=== PATIENT | male | born 1995 | race Two or more races ===

== ENCOUNTER 2021-10-29 19:19 | Emergency (ER) | payer OTHER, SELFPAY ==
--- NOTE | ~2021-10-29 | XR_ITS ---
EXAMINATION: XR HAND, RIGHT CLINICAL INFORMATION: Laceration and pain. Evaluate for a foreign body. COMPARISON: None TECHNIQUE: PA, lateral, and oblique views of the right hand. FINDINGS: Lucency within the soft tissues adjacent to the base of the fifth metacarpal consistent with a soft tissue laceration. No radiopaque foreign body. No fracture or dislocation. No osseous erosion. No abnormal soft tissue calcification. XR/XR hand RT min 3V IMPRESSION: Laceration adjacent to the base of the fifth metacarpal without acute osseous abnormality or radiopaque foreign body.
[2021-10-29 19:38] VITALS: PULSE 83; RESP 18; TEMP 36.9; O2SAT 99; BMI 23.8
--- NOTE | 2021-10-29 20:27 | ED_ITS ---
HPI - Wound/Laceration General Chief Complaint: Wound/Laceration Stated Complaint: right hand laceration Time Seen by Provider: 10/29/21 20:26 Source: patient Mode of arrival: ambulatory Limitations: no limitations History of Present Illness HPI narrative: 25-year-old male presenting to the emergency department laceration to his pain and happened just prior to arrival. Patient tells me was in aggression moving t hings, he slipped and he thinks that he cut his hand on glass. Denies numbness or tingling. Able to make a fist moving all digits, no wrist pain. When he fell he denied his head. No loss of consciousness. He denies and tingling. Patient is not on blood thinners. He is not a diabetic. He is not up-to-date on tetanus shot. Onset (ago): hour(s) (2) Location: other (right hand ) Place: home Patient tetanus UTD: No Context: accidental Associated symptoms: none Related Data Home Medications Medication Instructions Recorded Confirmed ibuprofen 400 mg tablet 400 mg PO Q6H PRN 10/29/21 10/29/21 Allergies Allergy/AdvReac Type Severity Reaction Status Date / Time Fish Containing Products Allergy Anaphylaxis Verified 10/29/21 19:32 Review of Systems Review of Systems: Constitutional : No Fever, No Chills, Cardiovascular : No Chest Pain, No SOB Respiratory : No Dyspnea Gastrointestinal : No abdominal pain Musculoskeletal : No Joint Swelling Skin : No rash, positive skin laceration Neuro : No Weakness, No Numbness Psych : No SI/HI Yes all other systems are reviewed and are negative [facility] Past Medical History Attestation statement: The following information was validated with the patient. Source: old records reviewed and nursing notes reviewed Social History Social History Advance Directives: No Physical Exam Vital Signs: Vital Signs: Last Vital Signs Temp 98.5 F 10/29/21 19:38 Pulse 83 10/29/21 19:38 Resp 18 10/29/21 19:38 Pulse Ox 99 10/29/21 19:38 BMI result Body Mass Index 23.8 VSS Appearance: Alert.? Oriented X3.? No acute distress.? Head: Normocephalic, atraumatic, no step-offs or deformities Eyes: Pupils equal, round and reactive to light.? ENT: Pharynx normal.? Neck: Normal inspection.? Neck supple.? CVS: Normal heart rate and rhythm.? Pulses normal.? Respiratory: No respiratory distress.? Breath sounds normal.? Abdomen: Soft and nontender.? Skin: Skin warm and dry.? Normal skin color.? Normal skin turgor.? + laceration to dorsal aspect of right hand around 4 cm linear no evidence of foreign bodies. Extremities: No lower extremity edema.? No calf ttp. 5/5 strength to bilateral upper and lower extremities Neuro: Oriented X 3.? No motor deficit.? No sensory deficit. CN 2-12 intact Course Reevaluation(s) Reevaluation #1: 4, 5-0 sutures placed to laceration, tolerated procedure well. X-ray of the right hand with a laceration adjacent to the base of the 5th metacarpal without acute osseous abnormality or foreign body. At this time patient will be discharged home. Patient is not a diabetic, no need for antibiotics at this time. There is thorough irrigation done on the wound it was cleaned well. Advised patient to return with new or worsening symptoms. Also advised him to return for suture removal in 7-10 days comfortable with discharge home. Upon discharge patient's right hand neurovascularly intact, sensory and motor in tact able to make a fist bilaterally range of motion to all fingers, wrist. Time: 21:08 MDM - Wound/Laceration [facility] Narrative Medical decision making narrative: 2028 25-year-old male presents with a laceration to the right dorsal aspect of hand occurred just prior to his arrival, cut his hand on glass he thinks after he tripped and fell. Not up-to-date on a tetanus shot. Physical examination with a 3 cm linear laceration on the and dorsal aspect of hand, no evidence of foreign bodies. Sensory and motor intact to bilateral upper and lower extremities. Capillary refill less than 2 seconds to bilateral digits. Neurovascularly intact. Plan at this time is tetanus shot, suturing. I will also obtain an x-ray of the right hand to rule out foreign bodies. Medical Records Attestation: I reviewed the patient's medical records. Lab Data Attestation: I reviewed the patient's lab results. Critical Care Time Critical Care Time Critical Care Time: No Discharge Plan Discharge Clinical Impression: Laceration Patient Disposition: Home, Self-Care Additional Instructions: Take your medications as prescribed. If you were prescribed antibiotics today, it is important that you take your medication to their entirety, do not skip any doses, do not finish them early. Follow-up with your primary care provider this week. Return to the emergency department with new or worsening symptoms. Such as fe vers, chills, chest pain, shortness of breath, nausea, vomiting, dizziness, headache, vision changes, lethargy, pain with range of motion to fingers, wrists, hand. Numbness or tingling. Draining from the site, bleeding, excruciating pain. In case of emergency call 911 Return in 7-10 days for suture removal. XR/XR hand RT min 3V IMPRESSION: Laceration adjacent to the base of the fifth metacarpal without acute osseous abnormality or radiopaque foreign body. Prescriptions: No Action ibuprofen 400 mg Tablet 400 mg PO Q6H PRN (Reason: Pain, Mild) 0RF Referrals: Physician,Unknown J [Primary Care Provider] - 3 days
[2021-10-29] MEDS: Diphth,Pertus(ACell),Tet Adult 0.5 ML SYRINGE IM (21:00)
[2021-10-29] MEDS: Lidocaine HCl 2 % MPF 5 ML VIAL SUBCUT (21:02)
== END 2021-10-29 21:21 | disposition home or self-care (01) ==
PROVIDERS: Emergency Provider Emergency Medicine Emergency Medical Services
DX: S61.411A Laceration without foreign body of right hand, initial encounter (principal); W01.110A Fall on same level from slipping, tripping and stumbling with subsequent striking against sharp glass, initial encounter; Y93.9 Activity, unspecified; Y92.009 Unspecified place in unspecified non-institutional (private) residence as the place of occurrence of the external cause; Y99.9 Unspecified external cause status
CPT/HCPCS: 12002; 73130; 90471; 90715; 99283; 99284